=== PATIENT | female | born 1950 | race Caucasian/White ===

== ENCOUNTER → 2018-01-24 | Outpatient (CLI) | payer MEDICARE, OTHER ==
[~2018-01-24] MED LIST: ALBU3IS INH; ALBU90OI6 INH; AMOCLA875 PO; ASPI81CH PO; ASPI81EC PO; AZIT500 PO; CITA20 PO; Cardizem CD 24240 MG PO; Clobetasol Prop50 ML TP; FISH1000 PO; FLONASE ALLERG9.9 ML INH; FLUSAL2505 INH; HYDR.5TC TOP; LAVAP17G PO; Levaquin500 MG PO; METO50 PO; Multivitamin1 EAC1 PO; NAPR500EC PO; PRED10 PO; PREDNISONE TAPER; Prednisone20 MG PO; Prinivil10 MG PO; SIMV10 PO; TIOT18 INH; TRIA80TC TOP; TRIHYD253B PO; Voltaren100 GM TP; Zithromax250 MG PO
[2018-01-24 11:57] LABS: BASOPHILS ABSOLUTE AUTO 0.01 K/mm3 (0.00-0.23); BASOPHILS PERCENT AUTO 0 % (0-2); EOSINOPHILS ABSOLUTE AUTO 0.12 K/mm3 (0.00-0.68); EOSINOPHILS PERCENT AUTO 3 % (0-6); Hematocrit 38.6 % (33.0-51.0); Hemoglobin 12.3 g/dL (11.5-16.0); IMMATURE GRAN PERCENT AUTO 0 % (0-1); LYMPHOCYTES ABSOLUTE AUTO 1.25 K/mm3 (0.84-5.20); LYMPHOCYTES PERCENT AUTO 26 % (21-46); MONOCYTES ABSOLUTE AUTO 0.43 K/mm3 (0.16-1.47); MONOCYTES PERCENT AUTO 9 % (4-13); Mean Corpuscular HGB 29.9 pg (26.0-34.0); Mean Corpuscular HGB Conc 31.9 g/dL (31.5-36.5); Mean Corpuscular Volume 94 fL (80-100); Mean Platelet Volume 12.1 fL (9.1-12.4); NEUTROPHILS ABSOLUTE AUTO 3.01 K/mm3 (1.96-9.15); NEUTROPHILS PERCENT AUTO 63 % (41-73); Platelet Count 121 K/mm3 (150-400); RDW Coefficient Variation 13.7 % (11.7-14.2); RDW Standard Deviation 46.5 fL (35.1-46.3); Red Blood Cell Count 4.11 M/mm3 (3.80-5.20); White Blood Cell Count 4.82 K/mm3 (4.00-11.30)
[2018-01-24 12:16] LABS: Alanine Aminotransfer (ALT/SGP 14 U/L (12-78); Albumin, Blood 3.6 g/dL (3.4-5.0); Alk Phos 77 U/L (40-126); Anion Gap 3 mmol/L (6-16); Aspartate Aminotrans (AST/SGOT 18 U/L (12-37); Bilirubin, Total 0.5 mg/dL (0.1-1.0); Blood Urea Nitrogen 18 mg/dL (8-24); Bun/Creatinine Ratio 20.7 (12.0-20.0); CO2, Blood 37 mmol/L (21-32); CPK Creatine Kinase 41 U/L (26-192); Chloride, Blood 100 mmol/L (98-108); Creatinine, Blood 0.87 mg/dL (0.40-1.00); Globulin, Blood 3.5 g/dL (2.2-4.0); Glomerular Filtration Rate >60 (60-); Glucose, Blood 106 mg/dL (70-99); Potassium, Blood 4.6 mmol/L (3.5-5.5); Sodium, Blood 140 mmol/L (136-145); Thyroid Stimulating Hormone 1.638 uIU/mL (0.360-4.800); Total Protein, Blood 7.1 g/dL (6.4-8.2)
[2018-01-24 12:17] LABS: Troponin I <0.017 ng/mL (0.000-0.040)
== END ==
LOC: LAB SHORT 11:51 → LAB EV 11:51
PROVIDERS: General Practice
DX: R06.00 Dyspnea, unspecified (principal)
CPT/HCPCS: 80053; 82550; 83880; 84443; 84484; 85025

== ENCOUNTER 2019-03-03 15:34 | Inpatient (IN) | payer MEDICARE, OTHER ==
[~2019-03-03] VITALS: Ht 172.7 cm; Wt 116.0 kg
[~2019-03-03 15:34] MED LIST changes: +ALBU2.5V5 INH; +ALBU90OI; +CLOB.05TO; +CLOB.05TO TOP; +DILT120 PO; +FLUT1DIS5; +HYDCOR2.5C TOP; +INCRUSE ELLI62.5 MCG INH; +Ipratropium Bro30 ML; +MELO7.5 PO; +VOLTAREN100 GM; +Zocor20 MG PO
[2019-03-03 16:19] LABS: BASOPHILS ABSOLUTE AUTO 0.01 K/mm3 (0.00-0.23); BASOPHILS PERCENT AUTO 0 % (0-2); EOSINOPHILS PERCENT AUTO 0 % (0-6); Hematocrit 41.9 % (33.0-51.0); Hemoglobin 12.7 g/dL (11.5-16.0); IMMATURE GRAN ABSOLUTE AUTO 0.03 K/mm3 (0.00-0.10); IMMATURE GRAN PERCENT AUTO 0 % (0-1); LYMPHOCYTES ABSOLUTE AUTO 0.81 K/mm3 (0.84-5.20); LYMPHOCYTES PERCENT AUTO 8 % (21-46); MONOCYTES ABSOLUTE AUTO 0.31 K/mm3 (0.16-1.47); MONOCYTES PERCENT AUTO 3 % (4-13); Mean Corpuscular HGB 30.2 pg (26.0-34.0); Mean Corpuscular HGB Conc 30.3 g/dL (31.5-36.5); Mean Corpuscular Volume 100 fL (80-100); Mean Platelet Volume 11.8 fL (9.1-12.4); NEUTROPHILS ABSOLUTE AUTO 9.53 K/mm3 (1.96-9.15); NEUTROPHILS PERCENT AUTO 89 % (41-73); Platelet Count 150 K/mm3 (150-400); RDW Standard Deviation 47.5 fL (35.1-46.3); Red Blood Cell Count 4.21 M/mm3 (3.80-5.20); White Blood Cell Count 10.69 K/mm3 (4.00-11.30)
[2019-03-03 16:20] LABS: PCO2 Arterial 85.8 mmHg (35-45)
[2019-03-03 16:38] LABS: Alanine Aminotransfer (ALT/SGP 21 U/L (12-78); Albumin, Blood 3.5 g/dL (3.4-5.0); Albumin/Globulin Ratio 0.9 (0.8-1.8); Alk Phos 86 U/L (50-136); Anion Gap 3 mmol/L (6-16); Aspartate Aminotrans (AST/SGOT 27 U/L (12-37); Bilirubin, Total 0.3 mg/dL (0.1-1.0); Blood Urea Nitrogen 24 mg/dL (8-24); Bun/Creatinine Ratio 38.9 (12.0-20.0); CO2, Blood 38 mmol/L (21-32); Calcium, Blood 9.1 mg/dL (8.5-10.1); Chloride, Blood 96 mmol/L (98-108); Creatinine, Blood 0.62 mg/dL (0.40-1.00); Glomerular Filtration Rate >60 (60-); Glucose, Blood 175 mg/dL (70-99); Magnesium, Blood 2.1 mg/dL (1.6-2.4); Potassium, Blood 4.8 mmol/L (3.5-5.5); Sodium, Blood 137 mmol/L (136-145); Total Protein, Blood 7.5 g/dL (6.4-8.2)
[2019-03-03] MEDS ORDERED: AZIT250 PO (19:32)
[2019-03-03] MEDS ORDERED: Clobetasol Emol15 GM TOP (19:34)
[2019-03-03] MEDS ORDERED: FLUT1DIS8 INH (19:36)
[2019-03-03] MEDS ORDERED: FISH OIL 1,0001 EAC2 PO (19:44)
[2019-03-03] MEDS ORDERED: THERA1 EACH PO (19:44)
[2019-03-03] MEDS ORDERED: LO-DOSE ASPIRIN81 MG PO (19:44)
[2019-03-03] MEDS ORDERED: Calcium-Mag-Zi1 EACH PO (19:45)
[2019-03-04 03:25] LABS: BASOPHILS PERCENT AUTO 0 % (0-2); EOSINOPHILS PERCENT AUTO 0 % (0-6); Hematocrit 39.7 % (33.0-51.0); Hemoglobin 12.4 g/dL (11.5-16.0); IMMATURE GRAN ABSOLUTE AUTO 0.03 K/mm3 (0.00-0.10); IMMATURE GRAN PERCENT AUTO 1 % (0-1); LYMPHOCYTES ABSOLUTE AUTO 0.54 K/mm3 (0.84-5.20); LYMPHOCYTES PERCENT AUTO 9 % (21-46); MONOCYTES ABSOLUTE AUTO 0.08 K/mm3 (0.16-1.47); MONOCYTES PERCENT AUTO 1 % (4-13); Mean Corpuscular HGB 30.8 pg (26.0-34.0); Mean Corpuscular HGB Conc 31.2 g/dL (31.5-36.5); Mean Corpuscular Volume 99 fL (80-100); Mean Platelet Volume 11.8 fL (9.1-12.4); NEUTROPHILS ABSOLUTE AUTO 5.74 K/mm3 (1.96-9.15); NEUTROPHILS PERCENT AUTO 90 % (41-73); Platelet Count 131 K/mm3 (150-400); RDW Standard Deviation 47.1 fL (35.1-46.3); Red Blood Cell Count 4.03 M/mm3 (3.80-5.20); White Blood Cell Count 6.39 K/mm3 (4.00-11.30)
[2019-03-04 03:41] LABS: Anion Gap 2 mmol/L (6-16); Blood Urea Nitrogen 19 mg/dL (8-24); Bun/Creatinine Ratio 38.2 (12.0-20.0); CO2, Blood 40 mmol/L (21-32); Calcium, Blood 8.8 mg/dL (8.5-10.1); Chloride, Blood 97 mmol/L (98-108); Glomerular Filtration Rate >60 (60-); Glucose, Blood 191 mg/dL (70-99); Potassium, Blood 4.7 mmol/L (3.5-5.5); Sodium, Blood 139 mmol/L (136-145)
[2019-03-04 04:43] LABS: PCO2 Arterial 81.7 mmHg (35-45); PO2 Arterial 93.7 mmHg (80-100); pH Blood Arterial 7.34 (7.35-7.45)
--- NOTE | 2019-03-04 05:55 | NUR ---
SHIFT SUMMARY PT SLEEPING IN ROOM COMFORTABLY AT THIS TIME. PT ARRIVED TO UNIT FROM ED AND WAS MVED FROM STRETCHER TO HOSP BED. PT VERY DYSPNIC UPON ARRIVAL, W/ INCREASING SOB W/ MOVEMENT. RESP TACHY AND LABORED W/ SATS BETWEEN 88-91% ON 5L NC. PT MOVED TO HIFLO NC UPON AND INCREASED TO 7L HIFLOW NC W/ HUMIDITY. SATS NOW INCREASED TO 94%. PT HAS BEEN REFUSING BIPAP, BUT AGREED TO TRY AIRVO. PT MOVED TO AIRVO ON 60L 40% FiO2, PT NOW FEELING MUCH BETTER, REPORTS DYSPNEA IMPROVED AND SATS >95%. PT WAS ABLE TO SLEEP COMFORTABLY, DENIED PAIN OR OTHER NEEDS. CALL LIGHT IN REACH.
--- NOTE | 2019-03-04 07:08 | NUR ---
AM NOTE ASSUMED CARE OF PT APROX 0700, PT IS CURRENTLY ON AIRVO AT 60L AND 40% FIO2. PT WAS ADMITTED FOR PNA. PT IS NORMALLY ON 3L NC AT HOME. MONITOR INTACT, NSR IN THE 80'S-90'S. PT'S BP HAS BEEN HYPERTENSIVE. PT WAS MEDICATED PER EMAR. PT'S L/S COARSE W/ WHEEZES T/O ON THE AIRVO. BT PRESENT AND HYPOACTIVE, ABD IS SOFT AND NONTENDER TO PALP. PT HAS RED PETECHIAE LIKE RASH ALL OVER HER ABD AND CHEST. PT IS VERY ANXIOUS ABOUT BECOMING SOB. CALL LIGHT IN REACH BED IS LOCKED AND LOW WILL CONTINUE TO MONITOR.
[2019-03-04 13:19] LABS: Source, Urine Catheter
[2019-03-04 13:26] LABS: Bilirubin, Urine Neg (Neg); Blood, Urine 1+ (Neg); Glucose Qualitative, Urine Neg (Neg); Ketones, Urine Neg (Neg); Leukocyte Esterase, Urine Neg (Neg); Nitrite, Urine Neg (Neg); Protein, Urine 2+ (Neg); Specific Gravity, Urine 1.015 (1.003-1.022); Urobilinogen, Urine NORM (Normal); pH, Urine 6.5 (5.0-8.0)
[2019-03-04 14:39] LABS: Appearance, Urine Clear (Clear); Color, Urine Yellow (P-Yellow)
[2019-03-04 14:40] LABS: Red Blood Cells, Urine 0-2 /hpf (0-2); White Blood Cells, Urine 0-2 /hpf (0-5)
[2019-03-04 14:41] LABS: Bacteria Rare /hpf; Squamous Epithelial Cells Rare /hpf (Few)
--- NOTE | 2019-03-04 19:45 | NUR ---
SHIFT SUMMARY. NO ACUTE CHANGES NOTED THIS SHIFT. PT'S BP HAS IMPROVED SINCE THIS AM. PT HAS BEEN RESTING VERY WELL SINCE THE ARMENDARIZ WAS PLACED, PT STATED SHE FELT MORE COMFORTABLE AND LESS ANXIOUS ABOUT HAVING TO USE THE BED TORRES AND BECOME SOB. CALL LIGHT IN REACH, BED IS LOCKED AND LOW WILL CONTINUE TO MONITOR UNTIL REPORT IS GIVEN TO ONCOMING RN.
--- NOTE | 2019-03-05 00:05 | NUR ---
ASSUMED CARE OF PATIENT AT [facility] FROM PAMELA Yanez RN. PATIENT ALERT AND ORIENTED X4; ANXIOUS AT TIMES; ANXIOUS WHEN SHE THINKS AIRVO MASK SLIDES OUT OF PLACE; DYSPNEA WITH ACTIVITY. PATIENT DENIES PAIN, NUMBNESS, TINGLING, DIZZINESS AND NAUSEA. PATIENT TURNED FREQUENTLY; REFUSED LAST TURN; REPORTED "I'M VERY COMFORTABLE". PATIENT NSR ON HEART MONITOR; OXYGEN SATURATION ABOVE 90% ON 60L 40% FIO2 AIRVO. REPORTED PATIENT CANNOT TOLERATE BIPAP DUE TO CLAUSTROBIA. PIV S/L. URINARY CATHETER PATENT AND DRAINING. PATIENT CURRENTLY RESTING IN BED; CALL LIGHT IN REACH; BED IN LOWEST POSISITON; WILL CONTINUE TO MONITOR AND ASSESS UNTIL END OF SHIFT.
--- NOTE | 2019-03-05 06:19 | NUR ---
PATIENT SLEPT ABOUT NINE HOURS LAST NIGHT. REPORTS FEELING WELL RESTED THIS MORNING. NO ACUTE CHANGES TO REPORT. WILL CONTINUE TO MONITOR AND ASSESS UNTIL END OF SHIFT.
--- NOTE | 2019-03-05 12:35 | NUR ---
REASSESSMENT: PT HAS BEEN RESTING IN BED WITH THE AIRVO ON THROUGHOUT THE MORNING. SHE IS SLIGHTLY ANXIOUS, ESPECIALLY IF HER NASAL CANNULA IS TOUCHED. LOTS OF REASSURANCE PROVIDED ABOUT HER OXYGEN LEVELS AND BREATHING. SHE IS ALERT AND ORIENTED, LUNGS ARE VERY WHEEZY. MOIST, PRODUCTIVE SOUNDING COUGH BUT PT ISN'T SPITTING ANYTHING OUT. SR, BP ELEVATED. DR. PHELPS AWARE AND ADJUSTED MEDICATIONS. PT RECEIVED A BED BATH AND DID WELL, EXCEPT SHE NEEDED A COUPLE MINUTES FOR HER BREATHING TO RECOVER AFTER EACH TURN. PT'S SPENT THE MORNING AT THE BEDSIDE AND WAS UPDATED BY DR. PHELPS. ALL QUESTIONS HAVE BEEN ANSWERED.
--- NOTE | 2019-03-05 16:56 | NUR ---
SHIFT SUMMARY: PT HAD NO ACUTE CHANGES THIS SHIFT. HER LUNGS CONTINUE TO BE VERY WHEEZY. SHE STILL REQUIRES THE AIRVO TO MEET HER OXYGEN DEMANDS AND GETS DYSPNEIC WITH MINIMAL ACTIVITY. SR, BP ELEVATED, DR. PHELPS AWARE AND ADJUSTING MEDICATIONS. SHE HAS A POOR APPETITE BUT IS DRINKING ENSURES. SHE WENT AND HAD HER CHEST CT COMPLETED WHICH WAS NEGATIVE FOR PE. CONTINUING TO MONITOR.
--- NOTE | 2019-03-06 03:04 | NUR ---
[place] of Care: Report received from Bailey RIZO. Patient sleeping, appears comfortable. Will continue to monitor.
[2019-03-06 03:32] LABS: BASOPHILS ABSOLUTE AUTO 0.01 K/mm3 (0.00-0.23); BASOPHILS PERCENT AUTO 0 % (0-2); EOSINOPHILS PERCENT AUTO 0 % (0-6); Hematocrit 41.3 % (33.0-51.0); Hemoglobin 12.2 g/dL (11.5-16.0); IMMATURE GRAN ABSOLUTE AUTO 0.05 K/mm3 (0.00-0.10); IMMATURE GRAN PERCENT AUTO 1 % (0-1); LYMPHOCYTES ABSOLUTE AUTO 0.45 K/mm3 (0.84-5.20); LYMPHOCYTES PERCENT AUTO 7 % (21-46); MONOCYTES ABSOLUTE AUTO 0.28 K/mm3 (0.16-1.47); MONOCYTES PERCENT AUTO 5 % (4-13); Mean Corpuscular HGB 30.1 pg (26.0-34.0); Mean Corpuscular HGB Conc 29.5 g/dL (31.5-36.5); Mean Platelet Volume 11.6 fL (9.1-12.4); NEUTROPHILS ABSOLUTE AUTO 5.34 K/mm3 (1.96-9.15); NEUTROPHILS PERCENT AUTO 87 % (41-73); Platelet Count 132 K/mm3 (150-400); RDW Coefficient Variation 12.6 % (11.7-14.2); RDW Standard Deviation 47.1 fL (35.1-46.3); Red Blood Cell Count 4.05 M/mm3 (3.80-5.20); White Blood Cell Count 6.13 K/mm3 (4.00-11.30)
[2019-03-06 03:35] LABS: Mean Corpuscular Volume 102 fL (80-100)
[2019-03-06 03:47] LABS: Alanine Aminotransfer (ALT/SGP 16 U/L (12-78); Albumin/Globulin Ratio 0.9 (0.8-1.8); Alk Phos 63 U/L (50-136); Aspartate Aminotrans (AST/SGOT 10 U/L (12-37); Bilirubin, Total 0.2 mg/dL (0.1-1.0); Blood Urea Nitrogen 32 mg/dL (8-24); Bun/Creatinine Ratio 61.2 (12.0-20.0); Calcium, Blood 9.1 mg/dL (8.5-10.1); Chloride, Blood 97 mmol/L (98-108); Creatinine, Blood 0.52 mg/dL (0.40-1.00); Globulin, Blood 3.5 g/dL (2.2-4.0); Glomerular Filtration Rate >60 (60-); Glucose, Blood 189 mg/dL (70-99); Potassium, Blood 4.9 mmol/L (3.5-5.5); Sodium, Blood 142 mmol/L (136-145); Total Protein, Blood 6.5 g/dL (6.4-8.2)
[2019-03-06 03:52] LABS: Anion Gap Unable to Calculate mmol/L (6-16); CO2, Blood >45 mmol/L (21-32)
[2019-03-06 04:31] LABS: PCO2 Arterial 99.3 mmHg (35-45); PO2 Arterial 80.6 mmHg (80-100); pH Blood Arterial 7.31 (7.35-7.45)
--- NOTE | 2019-03-06 06:25 | NUR ---
Shift Summary: Patient slept well throughout shift. Denies pain, discomfort, SOB, or dyspnea. ON Air-vo NC at 60L/45% FiO2 throughout most of shift, tolerated well, O2-92-96%, and no s/s of respiratory distress. Morning BMP results showed CO2 > 45, contacted Dr. Li and received order for ABG, which showed CO2-99.3. Again contacted Dr. Li and received instructions to place patient on BiPAP as tolerated. Patient nervous about use of BiPAP mask, but has been tolerating without difficulty. Nova cath remains patent and intact, draining clear yellow urine. Will continue to monitor until report to day shift RN.
--- NOTE | 2019-03-06 12:12 | NUR ---
REASSESSMENT: PT HAS BEEN RESTING IN BED THROUGHOUT THE MORNING. SHE IS ALERT AND ORIENTED. LUNGS ARE STILL VERY WHEEZY, L WORSE THAN R. SHE HAS BEEN ON THE BIPAP AND USING THE AIRVO FOR BREAKS. SHE HAS BEEN TOLERATING THE BIPAP WELL. DR. GIRON WAS CONSULTED BY DR. PHELPS AND PT WAS MADE ICU STATUS. BP REMAINS HIGH, DR. PHELPS ADJUSTED MEDICATIONS AGAIN. NO OTHER CONCERNS FROM PT AT THIS TIME. CONTINUING TO MONITOR.
[2019-03-06 16:10] LABS: PO2 Arterial 79.5 mmHg (80-100); pH Blood Arterial 7.35 (7.35-7.45)
[2019-03-06 16:11] LABS: PCO2 Arterial 90 mmHg (35-45)
--- NOTE | 2019-03-06 16:16 | NUR ---
DR. GIRON NOTIFIED OF ABG RESULTS. RECEIVED ORDER TO INCREASE IPAP TO 18. RT NOTIFIED.
--- NOTE | 2019-03-06 17:10 | NUR ---
SHIFT SUMMARY: PT WORE THE BIPAP ALL AFTERNOON EXCEPT FOR A 5 MINUTE BREAK TO MEDICATION. SHE HAS REMAINS ALERT AND ORIENTED. LUNGS ARE STILL WHEEZY. PT GETS DYSPNEIC WITH MINIMAL ACTIVITY ALTHOUGH SHE IS TOLERATING IT BETTER ON THE BIPAP. HER BP IS IMPROVED WITH SBP IN THE 140S NOW, SR. SHE DOESN'T HAVE A LARGE APPETITE BUT IS TRYING TO DRINK THE ENSURES THAT COME ON THE TRAYS. SHE HAS CLEAR YELLOW URINE. WAS AT THE BEDSIDE THIS MORNING AND WAS UPDATED. CONTINUING TO MONITOR.
--- NOTE | 2019-03-06 19:00 | NUR ---
[place] of Care: Patient sleeping, easily roused via verbal stimuli, oriented x4. Denies pain, discomfort, SOB, or dyspnea. VSS, O2-93-95% on BiPAP 18/8/30%. Plan to promote use of BiPAP mask throughout shift, will give patient short breaks as tolerated. Peripheral IV to RFA patent and intact. Nova cath patent and intact, draining clear yellow urine. Call light in reach, makes needs known. Will continue to monitor for pain, comfort, safety.
[2019-03-07 03:35] LABS: BASOPHILS ABSOLUTE AUTO 0.01 K/mm3 (0.00-0.23); BASOPHILS PERCENT AUTO 0 % (0-2); EOSINOPHILS PERCENT AUTO 0 % (0-6); Hematocrit 39.3 % (33.0-51.0); IMMATURE GRAN ABSOLUTE AUTO 0.07 K/mm3 (0.00-0.10); IMMATURE GRAN PERCENT AUTO 1 % (0-1); LYMPHOCYTES PERCENT AUTO 9 % (21-46); MONOCYTES PERCENT AUTO 4 % (4-13); Mean Corpuscular HGB 30.5 pg (26.0-34.0); Mean Corpuscular HGB Conc 30.5 g/dL (31.5-36.5); Mean Corpuscular Volume 100 fL (80-100); Mean Platelet Volume 11.4 fL (9.1-12.4); NEUTROPHILS ABSOLUTE AUTO 4.87 K/mm3 (1.96-9.15); NEUTROPHILS PERCENT AUTO 86 % (41-73); Platelet Count 123 K/mm3 (150-400); RDW Coefficient Variation 12.4 % (11.7-14.2); RDW Standard Deviation 46.2 fL (35.1-46.3); Red Blood Cell Count 3.93 M/mm3 (3.80-5.20); White Blood Cell Count 5.65 K/mm3 (4.00-11.30)
[2019-03-07 03:48] LABS: Albumin, Blood 2.9 g/dL (3.4-5.0); Blood Urea Nitrogen 37 mg/dL (8-24); Bun/Creatinine Ratio 70.5 (12.0-20.0); Calcium, Blood 8.8 mg/dL (8.5-10.1); Chloride, Blood 96 mmol/L (98-108); Creatinine, Blood 0.53 mg/dL (0.40-1.00); Glomerular Filtration Rate >60 (60-); Glucose, Blood 210 mg/dL (70-99); Magnesium, Blood 2.3 mg/dL (1.6-2.4); Phosphorus, Blood 2.5 mg/dL (2.5-4.9); Potassium, Blood 4.6 mmol/L (3.5-5.5); Sodium, Blood 141 mmol/L (136-145)
[2019-03-07 03:50] LABS: Anion Gap Unable to Calculate mmol/L (6-16); CO2, Blood >45 mmol/L (21-32)
[2019-03-07 05:19] LABS: PCO2 Arterial 74 mmHg (35-45); PO2 Arterial 68.8 mmHg (80-100); pH Blood Arterial 7.44 (7.35-7.45)
--- NOTE | 2019-03-07 05:57 | NUR ---
Shift Summary: Patient slept well throughout shift, easily roused via verbal stimuli. Denies pain, discomfort, SOB, or dyspnea. VSS, on BiPAP throughout majority of shift 18/8/30-35%, O2-87-96%. Tolerated short breaks from BiPAP via high-flow NC without difficulty. Nova cath patent and intact, draining clear yellow urine. Peripheral IV x1 remains patent and intact. Will continue to monitor until report to day shift RN.
--- NOTE | 2019-03-07 10:52 | NUR ---
pt is a/o but very weak and SLOW TO RECOVER OFF BIPAP. PT IS SOMEWHAT PAINFUL WITH MOVEMENT AND IS POORLY MOTIVATED TO ASSIST. PT IS TOLERATING BIPAP WELL AND IS TAKING PO W/O DISTRESS. DR DOBBS IN AND SETTINGS DOWN TO 14/6 AT 35%. WILL FOLLOW.
--- NOTE | 2019-03-07 14:42 | NUR ---
PT IS RESTNG WELL ON JUST 9L AND WILL DEC TO 8L HFNC AND MONITOR.
--- NOTE | 2019-03-07 16:28 | NUR ---
1530 PT RETURNED TO BIPAP 25/02 35% AND WAS QUITE ANXIEOUS FOR A PERIOD OF TIME AND REQUESTED PO PAIN MEDS FOR MIDSTERNAL BRONCHIAL CHEST PAIN.
--- NOTE | 2019-03-07 18:02 | NUR ---
PT REMAINS ON BIPAP AT 14/6 AND 35% WITH SATS 93-5 %. PT IS QUITE ANXIOUS AND CALLING OUT BUT HAS GOOD TV AND SATS. PT I/O NOTED AND DENIES PAIN AT THIS TIME.
[2019-03-07 19:26] LABS: Adenovirus Not Detected (NOT DETECT); Bordetella pertussis Not Detected (NOT DETECT); Chlamydophila pneumoniae Not Detected (NOT DETECT); Coronavirus 229E Not Detected (NOT DETECT); Coronavirus HKU1 Not Detected (NOT DETECT); Coronavirus NL63 Not Detected (NOT DETECT); Coronavirus OC43 Not Detected (NOT DETECT); Human Metapneumovirus Detected (NOT DETECT); Human Rhinovirus/Enterovirus Not Detected (NOT DETECT); Influenza A Not Detected (NOT DETECT); Influenza A/2009-H1 Not Detected (NOT DETECT); Influenza A/H1 Not Detected (NOT DETECT); Influenza A/H3 Not Detected (NOT DETECT); Influenza B Not Detected (NOT DETECT); Mycoplasma pneumoniae Not Detected (NOT DETECT); Parainfluenza Virus 1 Not Detected (NOT DETECT); Parainfluenza Virus 2 Not Detected (NOT DETECT); Parainfluenza Virus 3 Not Detected (NOT DETECT); Parainfluenza Virus 4 Not Detected (NOT DETECT); Respiratory Syncytial Virus Not Detected (NOT DETECT)
--- NOTE | 2019-03-07 19:30 | NUR ---
ASSUMED CARE BEDSIDE REPORT RECIEVED. PT IS RESTING IN BED WITH BIPAP IN PLACE. BIPAP 14/6, FIO2 35%. PT IS AWAKE, ALERT AND ORIENTED. PT IS ANXIOUS ABOUT HER BREATHING. PT DENIES SOB OR DYSPNEA WHEN THE BIPAP IS ON, BUT IS ASKING ABOUT HER VITALS FREQUENTLY. VITAL SIGNS ARE STABLE. PT WITH IV SALINE LOCKED. ARMENDARIZ IN PLACE WITH YELLOW OUTPUT NOTED. PT REQUESTING TO KEEP THE CURTAIN IN ROOM OPEN SO SHE CAN SEE OUT TO THE NURSES STATION. WILL CONTINUE TO MONITOR.
--- NOTE | 2019-03-07 23:05 | NUR ---
ACUTE CONFUSION/AGITATION AFTER BEING IN PT ROOM MULTIPLE TIMES TO ADDRESS PT NEEDS AND TAKE PT BIPAP ON AND OFF MULTIPLE TIMES PER PT REQUEST, PT HAS BECOME ACUTELY ANXIOUS AND AGITATED. PT IS YELLING OUT FROM ROOM STATING "THEY ARE TRYING TO KILL ME! WHY ARE YOU TRYING TO KILL ME." IN REFERENCE TO THE OTHER NURSES AND DEAN OF [place] THAT ARE ASSISTING WITH PT CARE IN THE UNIT. PT REASSURED AND REORIENTED. PT CONTINUES TO BELIEVE THAT EVERYONE IS TRYING TO KILL HER. OVERNIGHT STOCKER AMIRAH TALBERT NOTIFED. ORDERS RECIEVED FOR 25 MG TRAZODONE ONE TIME. PT AGREED TO TAKE PILL DESPITE SAYING THAT THE OTHER NURSES ARE TRYING TO KILL HER. WILL CONTINUE TO MONITOR.
--- NOTE | 2019-03-07 23:27 | NUR ---
ASSUMING CARE OF PT AT THIS TIME. PT REPORT RECEIVED AT BEDSIDE WITH OFFGOING NURSE, AMIRAH RIZO. PT LAYING IN BED, AWAKE. VS STABLE - SEE VS FS. PT DOES NOT APPEAR TO BE IN DISTRESS AT THIS TIME. WILL REVIEW PLAN OF CARE.
--- NOTE | 2019-03-07 23:30 | NUR ---
ASSESSMENT PT UNCOOPERATIVE, YELLING, ANXIOUS, AGITATED, CONFUSED, A&O TO SELF/PLACE, REFUSING TO ANSWER MOST QUESTIONS, FOLLOWS COMMANDS, FORGETFUL. PT C/O CHRONIC N/T TO ALL EXTREMETIES. PT JACK. WEAK MOVEMENT NOTED. PT ASSISTS WITH TURNS. QP SBA TO AMBULATE PT. PT DENIES PAIN/DISCOMFORT. NO S/SX OF PAIN/DISCOMFORT NOTED. COARSE UPPER AND MIDDLE LOBES, EXPIRATORY WHEEZING UPPER AND MIDDLE LOBES, DIMINISHED LOWER LOBES. SHALLOW BREATHING. PT ON 10L HIGH FLOW NC W/ HUMIDIFED AIR. OXY SAT >95%. RR 20'S. BIPAP WHILE SLEEPING 14/6, FIO2 35%. OCC NONPRODUCTIVE COUGH. AFEBRILE. ST WITH OCC PAC'S AND PVC'S. HR 100'S. SLIGHTLY HTN W/ AGITATION. STRONG RADIAL PULSES. FAINT TIBIAL AND PEDAL PULSES. EDEMA BLE'S. WARM, PINK SKIN. HYPOACTIVE BT X4 QUADRANTS. ABD MOD DIST (PT STATES ABD DIST IS NORMAL), SOFT, NONTENDER. NO N/V. NO BM. PT TOLERATING ADA DIET AND PO WATER. F/C IN PLACE: YELLOW CLOUDY URINE WITH SEDIMENT. PIV X1 - SL.
[2019-03-08 03:42] LABS: Base Excess Venous 23.3 mmol/L; Bicarbonate Venous 43.4 mmol/L (24.0-30.0); PCO2 Venous 69.8 mmHg (38-42); PO2 Venous 52 mmHg (38-42); pH Blood Venous 7.44 (7.34-7.37)
[2019-03-08 03:49] LABS: BASOPHILS ABSOLUTE AUTO 0.01 K/mm3 (0.00-0.23); BASOPHILS PERCENT AUTO 0 % (0-2); EOSINOPHILS PERCENT AUTO 0 % (0-6); Hematocrit 42.1 % (33.0-51.0); IMMATURE GRAN PERCENT AUTO 4 % (0-1); LYMPHOCYTES ABSOLUTE AUTO 0.54 K/mm3 (0.84-5.20); LYMPHOCYTES PERCENT AUTO 11 % (21-46); MONOCYTES ABSOLUTE AUTO 0.24 K/mm3 (0.16-1.47); MONOCYTES PERCENT AUTO 5 % (4-13); Mean Corpuscular HGB 30.1 pg (26.0-34.0); Mean Corpuscular HGB Conc 30.9 g/dL (31.5-36.5); Mean Corpuscular Volume 98 fL (80-100); Mean Platelet Volume 11.3 fL (9.1-12.4); NEUTROPHILS ABSOLUTE AUTO 3.81 K/mm3 (1.96-9.15); NEUTROPHILS PERCENT AUTO 79 % (41-73); Platelet Count 127 K/mm3 (150-400); RDW Coefficient Variation 12.5 % (11.7-14.2); RDW Standard Deviation 45.2 fL (35.1-46.3); Red Blood Cell Count 4.32 M/mm3 (3.80-5.20)
[2019-03-08 04:02] LABS: Blood Urea Nitrogen 39 mg/dL (8-24); Bun/Creatinine Ratio 69.9 (12.0-20.0); Calcium, Blood 8.9 mg/dL (8.5-10.1); Chloride, Blood 97 mmol/L (98-108); Creatinine, Blood 0.56 mg/dL (0.40-1.00); Glomerular Filtration Rate >60 (60-); Glucose, Blood 203 mg/dL (70-99); Magnesium, Blood 2.3 mg/dL (1.6-2.4); Potassium, Blood 4.2 mmol/L (3.5-5.5); Sodium, Blood 143 mmol/L (136-145)
[2019-03-08 04:06] LABS: Anion Gap Unable to Calculate mmol/L (6-16); CO2, Blood >45 mmol/L (21-32)
--- NOTE | 2019-03-08 04:30 | NUR ---
DR. SWANSON PT HYPERTENSIVE (SEE VS FS). CALLED DR. SWANSON AT 0417. DR. SWANSON CALLED ICU BACK AT 0424. INFORMED DR. SWANSON OF VS (SEE VS FS) AND CRITICAL LAB VALUE CO2 >45. DR. SWANSON ORDERED HYDRALAZINE 10 MG IV Q6P FOR SBP >160. WAITING FOR VERIFICATION OF MEDICATION FROM PHARMACY AT THIS TIME.
--- NOTE | 2019-03-08 04:32 | NUR ---
SHIFT ASSESSMENT NO ACUTE CHANGES NOTED T/O SHIFT. PT UNCOOPERATIVE AT TIMES, YELLING, ANXIOUS, AGITATED, CONFUSED, A&O TO SELF/PLACE, REFUSING TO ANSWER MOST QUESTIONS, OCC REFUSING PT CARE, FOLLOWS COMMANDS, FORGETFUL, RESTLESS. PT SLEPT APPROXIMATELY 3 HOURS AFTER OFFGOING NURSE (AMIRAH RN) ADMINSITERED TRAZODONE AND HALDOL. PT MORE COOPERATIVE AFTER TRAZODONE AND HALDOL. PT C/O CHRONIC N/T TO ALL EXTREMETIES. PT [place]. WEAK MOVEMENT NOTED. PT ASSISTS WITH TURNS. PER REPORT - 1P SBA TO AMBUALATE. PT DENIES PAIN/DISCOMFORT. NO S/SX OF PAIN/DISCOMFORT NOTED. COARSE UPPER AND MIDDLE LOBES, EXPIRATORY WHEEZING UPPER AND MIDDLEL LOBES, DIMINISHED LOWER LOBES. SHALLOW BREATHING. PT ON 10L HIGH FLOW NC WITH HUMIDIFIED AIR WHILE OFF OF BIPAP. OXY SAT REMAINED >90% WHILE ON 10L HIGH FLOW NC WITH HUMIDFIED AIR. BIPAP 14/6, FIO2 35%. OXY SAT REMAINED >90% WHILE ON BIPAP 14/6, FIO2 35%. RR 14 TO 20'S. OCC NONPRODUCTIVE COUGH. AFEBRILE. NSR TO ST WITH OCC PAC'S AND PVC'S. HR 80'S TO 110'S. INCREASING BP NOTED THIS AM - WAITING FOR VERIFICATON OF HYDRALAZINE PRN AT THIS TIME. OTHERWISE BP STABLE (SEE VS FS). STRONG RADIAL PULSES. FAINT TIBIAL AND PEDAL PULSES. EDEMA BLE'S. WARM, PINK SKIN. HYPOACTIVE BT X4 QUADRANTS. ABD MOD (PT STATES ABD DIST IS NORMAL), SOFT, NONTENDER. NO N/V. NO BM. PT TOLERATING ADA DIET AND PO WATER. F/C IN [place]: YELLOW CLOUDY URINE WITH SEDIMENT. PIV X1 - SL. NS TKO ON STANDBY. WILL CONT TO MONITOR PT AND WILL PROVIDE BEDSIDE REPORT TO ONCOMING NURSE THIS AM.
--- NOTE | 2019-03-08 06:12 | NUR ---
DR. SWANSON PT HYPERTENSIVE (SEE VS FS). CALLED DR. SWANSON AT 0[address]. DR. SWANSON CALLED ICU BACK AT 0610. INFORMED DR. SWANSON OF VS (SEE VS FS). DR. SWANSON AWARE OF PT'S CURRENT ANTIHYPERTENSIVES ORDERED ON EMAR. DR. SWANSON ORDERED LABETALOL 10 MG Q6 HR PRN. WAITING FOR VERIFICATION OF MEDICATION FROM PHARMACY AT THIS TIME.
--- NOTE | 2019-03-08 08:23 | NUR ---
PT WAS RETURNED TO BIPAP AT APPROX 0715 AND IS RESTING WELL BUT IS WHZ T/O BUT IMPROVING ON 25/02 30%. PT ANXIETY IS SUBSIDED CURRENTLY. PT IS NOTING SOME SL ABD TENDERNESS AND WILL ACCEPT BOWEL RX THIS AM. VS NOTED WITH ELEVATED BP AND AM MEDS WILL FOLLOW MAYA.
--- NOTE | 2019-03-08 19:30 | NUR ---
UPDATE BILATERAL GROIN SITES ARE SOFT, NONTENDER AND SHOW NO SIGN OF HEMATOMA FORMATION. PEDAL PULSES ARE STRONG 2+ BILATERALLY.
--- NOTE | 2019-03-08 19:56 | NUR ---
ASSUMED CARE RECIEVED REPORT FROM CLEMENTINE. PT IS ASLEEP CURRENTLY ON 8L HFNC AND SAT'ING MID 90'S; RT WILL BE SWITCHING HER TO BIPAP FOR NIGHT. ARMENDARIZ PATENT HANGING TO GRAVITY, PULSE OX ON RIGHT EARLOBE, AND BP CUFF ON LEFT WRIST. NO FAMILY AT BEDSIDE. BED IS LOW AND LOCKED, CALL LIGHT WITHIN REACH.
--- NOTE | 2019-03-08 22:17 | NUR ---
UPDATE PT REQUESTS TO BE OFF BIPAP, BECAUSE SHE WAS GETTING TOO ZOIE, AND IT WAS UNCOMFORTABLE. SHE IS CURRENTLY ON 8L HFNC WITH HUMIDITY. SAT'ING MID 90'S WITH NO REPORTS OF DYSPNEA. NOTIFIED RT AND IMPLEMENTATION SPECIALIST.
--- NOTE | 2019-03-09 00:10 | NUR ---
UPDATE PT PLACED ON BIPAP BY RT DUE TO CO2 RETENTION. SAT'S HAVE BEEN MID TO HIGH 90'S AND NO COMPLAINTS OF DYSPNEA WHEN OFF BIPAP, OTHERWISE. PT HAS BEEN ASLEEP FOR MAJORITY OF SHIFT. NO OTHER UPDATES AT THIS TIME.
--- NOTE | 2019-03-09 00:15 | NUR ---
UPDATE RT IN ROOM DOING BREATHING TREATMENT. NO MAJOR CHANGES; RT TURNED DOWN LPM TO 4L ON HFNC, FROM 8L; SAT'ING HIGH 90'S. BLOOD PRESSURE IS BACK DOWN IN A BETTER RANGE (SEE VS). PT REQUESTS CURTAIN OPEN AND LIGHTS TO BE ON (DIM) WHILE SHE SLEEPS. BED LOW AND LOCKED. CALL LIGHT WITHIN REACH.
[2019-03-09 05:38] LABS: Base Excess Venous 22.4 mmol/L; Bicarbonate Venous 43.2 mmol/L (24.0-30.0); PCO2 Venous 59.9 mmHg (38-42); PO2 Venous 61.3 mmHg (38-42); pH Blood Venous 7.49 (7.34-7.37)
[2019-03-09 05:42] LABS: BASOPHILS ABSOLUTE AUTO 0.03 K/mm3 (0.00-0.23); BASOPHILS PERCENT AUTO 0 % (0-2); EOSINOPHILS PERCENT AUTO 0 % (0-6); Hemoglobin 13.7 g/dL (11.5-16.0); IMMATURE GRAN ABSOLUTE AUTO 0.33 K/mm3 (0.00-0.10); IMMATURE GRAN PERCENT AUTO 5 % (0-1); LYMPHOCYTES ABSOLUTE AUTO 0.66 K/mm3 (0.84-5.20); LYMPHOCYTES PERCENT AUTO 9 % (21-46); MONOCYTES ABSOLUTE AUTO 0.46 K/mm3 (0.16-1.47); MONOCYTES PERCENT AUTO 7 % (4-13); Mean Corpuscular HGB 29.9 pg (26.0-34.0); Mean Corpuscular HGB Conc 31.1 g/dL (31.5-36.5); Mean Corpuscular Volume 96 fL (80-100); Mean Platelet Volume 11.8 fL (9.1-12.4); NEUTROPHILS ABSOLUTE AUTO 5.61 K/mm3 (1.96-9.15); NEUTROPHILS PERCENT AUTO 79 % (41-73); Platelet Count 152 K/mm3 (150-400); RDW Coefficient Variation 12.9 % (11.7-14.2); RDW Standard Deviation 45.6 fL (35.1-46.3); Red Blood Cell Count 4.58 M/mm3 (3.80-5.20); White Blood Cell Count 7.09 K/mm3 (4.00-11.30)
[2019-03-09 05:59] LABS: Anion Gap 1 mmol/L (6-16); Blood Urea Nitrogen 29 mg/dL (8-24); Bun/Creatinine Ratio 55.9 (12.0-20.0); CO2, Blood 43 mmol/L (21-32); Calcium, Blood 8.8 mg/dL (8.5-10.1); Chloride, Blood 97 mmol/L (98-108); Creatinine, Blood 0.52 mg/dL (0.40-1.00); Glomerular Filtration Rate >60 (60-); Glucose, Blood 196 mg/dL (70-99); Magnesium, Blood 2.5 mg/dL (1.6-2.4); Phosphorus, Blood 3.8 mg/dL (2.5-4.9); Potassium, Blood 4.5 mmol/L (3.5-5.5); Sodium, Blood 141 mmol/L (136-145)
--- NOTE | 2019-03-09 07:15 | NUR ---
START OF SHIFT NOTE: RECEIVED REPORT FROM JESICA GONZALEZ RN, ASSUMED CARE, PATIENT IS AWAKE, ABLE TO FOLLOW ORDERS APPROPRIATELY, PATIENT APPEARS EXTREMELY ANXIOUS, BUT IS COOPERATIVE, STATED THAT SHE "HAD A BOWEL MOVEMENT", PATIENT RECEIVED COMPLETE BEDBATH, BUT WAS FOUND TO NOT HAVE HAD A BM, ABLE TO ROLL FROM SIDE TO SIDE WITH ASSISTANCE, ALERT AND ORIENTED, LUNG SOUNDS ARE DIMINISHED AND CRACKLES HEARD, SR/ST, BLOOD PRESSURES SLIGHTLY ELEVATED IN 170'S, BOWEL TONES PRESENT AND HYPOACTIVE, ARMENDARIZ CATHETER IN PLACE, PATIENT IS ON HIFLO AT THIS TIME, SWITCHES TO BIPAP OCCASSIONALLY, CHEMSTICK DONE AND AT 186, NO COVERAGE REQUIRED, CALL LIGHT IN REACH, WILL CONTINUE TO MONITOR.
--- NOTE | 2019-03-09 07:41 | NUR ---
SHIFT SUMMARY NO ACUTE CHANGES OVERNIGHT. PT REMAINS SLIGHTLY ANXIOUS, BUT COOPERATIVE. ON BIPAP ALL NIGHT 06/18, 40% AND WOKE UP AROUND 0630 AND REQUESTED TO BE BACK ON HFNC. VBG IMPROVING. SLEPT THROUGHOUT NIGHT, ONLY TO WAKE UP TO LAB DRAWS. AFEBRILE. BED LOW AND LOCKED AND CALL LIGHT WITHIN REACH.
--- NOTE | 2019-03-09 07:46 | NUR ---
START OF SHIFT NOTE: RECEIVED REPORT FROM JESICA GONZALEZ RN, ASSUMED CARE, PATIENT IS AWAKE AND RESTLESS, UNABLE TO FOLLOW COMMANDS OR ANSWER QUESTIONS, REPOSITIONED, EKG DONE, PATIENT HAS TEMP OF 102.0, LUNGS ARE TIGHT THROUGHOUT, EXPIRATORY WHEEZING HEARD WITHOUT STETHOSCOPE, BOWEL TONES HYPOACTIVE, ARMENDARIZ CATHETER IN PLACE, DRAINING CLEAR YELLOW URINE, ON MULTIPLE ANTIBIOTICS, LEVOPHED INFUSING AT 3 VIA CENTRAL LINE IN RIGHT NECK, RESTRAINTS IN PLACE, PATIENT PULLING ON LINES AND CORDS AND TRYING TO GET OOB, POSITIONED FOR COMFORT, CALL LIGHT IN REACH, WILL CONTINUE TO MONITOR.
--- NOTE | 2019-03-09 09:17 | NUR ---
IMAGING IN TO DO ORDERED ECHO.
--- NOTE | 2019-03-09 09:59 | NUR ---
PATIENT TOOK AM MEDICATION ONE PILL AT A TIME WITH SOME SIPS OF WATER, NO PROBLEM SWALLOWING, DR. PARDO IN TO SEE PATIENT, STATUS CHANGED TO PCU, PATIENT CONTINUES ON HIFLO WITH O2 SATS AT 93 %, VERBALIZED THAT SHE WILL TRY TO STAY ON HIFLO FOR A WHILE LONGER, CALL LIGHT IN REACH, AT BEDSIDE, WILL CONTINUE TO MONITOR.
--- NOTE | 2019-03-09 11:59 | NUR ---
PATIENT IS RESTING COMFORTABLY AND TRYING TO TAKE A NAP, GOES BETWEEN HIFLO WHEN AWAKE AND BIPAP WHEN SLEEPING, O2 SATS REMAIN 94-95 % ON EITHER OXYGEN DELIVERY MODE, CALL LIGHT IN REACH, WILL CONTINUE TO MONITOR.
--- NOTE | 2019-03-09 16:13 | NUR ---
PATIENT MOSTLY SLEEPING THIS AFTERNOON, SWITCHING BACK AND FORTH BETWEEN HIFLO AND BIPAP, RT IN TO ADMINISTER BREATHING TREATMENTS, NO NEEDS IDENTIFIED, CALL LIGHT IN REACH, WILL CONTINUE TO MONITOR.
--- NOTE | 2019-03-09 17:48 | NUR ---
SHIFT SUMMARY NOTE: PATIENT HAD NO ADVERSE EVENTS DURING THIS SHIFT, SHE USED HIFLO MORE FREQUENTLY AND O2 SATS REMAINED AT 94-95 %, TOLERATED WELL, WAS SWITCHED TO BIPAP HERE AND THERE TO TAKE NAPS, PATIENT FEELS BETTER, VSS, AFEBRILE, DENIES PAIN, ARMENDARIZ CATHETER IN PLACE AND DRAINING DARK YELLOW URINE, PATIENT ATE BREAKFAST WITH GOOD APPETITE, SKIPPED LUNCH, BUT ATE 70 % OF HER DINNER, BLOOD SUGARS SLIGHTLY ELEVATED D/T IV STEROIDS, TAKES ORAL MEDICATION ONE PILL AT A TIME WITHOUT ANY PROBLEMS SWALLOWING, DR. GIRON IN TO SEE PATIENT, STATUS CHANGED TO PCU, PT/OT ORDERED, HAVE NOT SEE PATIENT OF YET, RECLINER IN ROOM, PATIENT TO WALK AND SIT IN CHAIR IF POSSIBLE, FOR DETAILS SEE SHIFT ASSESSMENT DOCUMENTATION AND NURSES NOTES, CALL LIGHT IN REACH, WILL CONTINUE TO MONITOR AND GIVE REPORT TO ONCOMING PHYSICAL SCIENCE TEACHER.
--- NOTE | 2019-03-09 17:59 | NUR ---
[facility] initial note: Mar was alone in room and subdued. she is not mu-ism, but responded well to theraputic listening and emotional affirmation. She admits she is fearful, but she is mostly concerned that her is home alone. He is chronically ill and she has been working hard to care for him. She admits she has ignored her own health to care for him. I complimented her on her capacity for love and offered gentle clinical counselor regarding care for self in order to continue caring for spouse. She verbalizes agreement. It is unclear to me Mar completely grasps the extent and trajection of her illness. Symptom management and compliance appear to be an issue. Possibly financial. aMr took time to warm up to me, and even then she was emotionally distant/guarded. She did not divuldge her spouse's illness. She states she has strong support and help from neighbors and friends. I will remain available.
--- NOTE | 2019-03-09 19:30 | NUR ---
[place] of Care: Patient alert and oriented, sitting upright in bed watching tv. Denies pain, discomfort, SOB, or dyspnea. On BiPAP at shift change 14/8/35%, now on high-flow NC at 4LPM, tolerating without difficulty, O2-94-96%. Will encourage use of BiPAP when sleeping. Peripheral IV ro rt forearm patent and intact. Nova cath patent and intact, draining clear yellow urine. Call light in reach, makes needs known. Will continue to monitor for pain, comfort, safety.
--- NOTE | 2019-03-10 06:06 | NUR ---
Shift Summary: Patient slept well throughout shift, easily roused via verbal stimuli, oriented x4. VSS, O2-92-98% on BiPAP 14//25-30%. Patient also tolerating long breaks from BiPAP, using high-flow NC at 4LPM. Denies dyspnea, SOB, pain, or discomfort. Nova cath remains patent and intact, draining clear yellow urine. Peripheral IV to rt forearm patent and intact. Call light in reach, makes needs known. Will continue to monitor until report to day shift RN.
[2019-03-10 07:52] LABS: PCO2 Arterial 74.6 mmHg (35-45); pH Blood Arterial 7.41 (7.35-7.45)
--- NOTE | 2019-03-10 08:00 | NUR ---
REPORT WAS GIVEN TO SALLIE VILLAFUERTE, PATIENT TO BE TRANSFERRED TO PCU 16, PATIENT IS EATING BREAKFAST AT THIS TIME, WILL BE TRANSFERRED AFTER FINISHED HER BREAKFAST.
--- NOTE | 2019-03-10 08:01 | NUR ---
RECEIVED CRITICAL ABG VALUE FROM MACY SERNA, RT, CALL OUT TO DR. GIRON, AWAITING HIS CALL BACK.
--- NOTE | 2019-03-10 08:31 | NUR ---
PATIENT TRANSFERRED TO PCU 16 VIA BED WITH ALL MEDICATIONS AND BELONGINGS.
--- NOTE | 2019-03-10 08:50 | NUR ---
Received the pt via bed from ICU 7, brought by LEXI Hutchinson. The pt was slid from bed to bed, 3 staff members assisting. The pt states that she feels a little short of breath after all the activity of eating breakfast and taking all her pills this morning. Sitting up in bed, HOB elevated to 50 degrees and she is wearing oxygen at 4 l/min via n.c. delivery. RR 22/min, with spo2 90% upon arrival and supraclavicular retractions noted. She is able to carry on conversation, taking 1-2 breaths during each spoken sentence. States that she has not been out of bed since admission, but normally walks around, occasionally using walker and if long distances, uses a wheelchair. Lives at home with her .
--- NOTE | 2019-03-10 16:55 | NUR ---
Bladder training was started at this time. The pt was able to get up to the chair with standby assistance with the physical therapist.
--- NOTE | 2019-03-10 18:34 | NUR ---
SHIFT SUMMARY PT A&Ox4. CALM AND COOPERATIVE WITH CARE. PT TRANSFERED FROM ICU THIS AM. PT RESTING IN BED DURING SHIFT, UP WITH PHYSICAL THERAPY IN CHAIR. SOB AT REST AT TIME AND WITH EXERTION, >90% ON 4L O2 VIA NC, LS EXP WHE, DIM IN BASES, BIPAP WHILE SLEEPING. RESP EVEN AND UNLABORED. PT DENIES NAUSEA. PT HAS SMALL BM DURING SHIFT, CONTINUES TO ASK FOR PRUNE JUICE. ARMENDARIZ IN PLACE, BLADDER TRAINING STARTED THIS AFTERNOON. PT RECEIVING IV STEROIDS. ELEVATED BP NOTED, MEDIDCATED WITH SCHEDULED BP MEDS. OTHER VSS. NO OTHER ACUTE CHANGES NOTED DURING SHIFT. WILL CONTINUE TO MONITOR UNTIL REPORT GIVEN TO ONCOMING RN.
--- NOTE | 2019-03-11 05:10 | NUR ---
SHIFT SUMMARY: PT IS ALERT AND ORIENTED. PT IS CALM AND COOPERATIVE WITH CARE. PT IS A 1 ASSIST, NOT OUT OF BED OVERNIGHT. BLADDER TRAINING IN PROGRESS. PT DENIES PAIN, NAUSEA, AND VOMITING. PT REPORTS SOB UPON EXERTION, BIPAP OVERNIGHT. PT SLEPT MUCH OF THE NIGHT WHEN NOT DISTURBED. NO ACUTE CHANGES OR COMPLICATIONS THIS SHIFT. BED IN LOW POSITION, CALL LIGHT WITHIN REACH. WILL CONTINUE TO MONITOR.
--- NOTE | 2019-03-11 09:33 | NUR ---
The pt sat up in the chair for breakfast. She did not think that she would be able to ambulate the distance into the bathroom, so she was wheeled into the bathroom and then was able to stand and take a few steps into the shower chair. Nova catheter was removed. After the shower, she stood using the walker, with moderate assistance using Gait belt, staff assited her to the rolling recliner, and then she was brought close to the bed where she again stood and got into bed with minimal assistance. Spo2 just following all the activity was 90% on 4 l/min n.c. O2 delivery. Cheerful disposition, talking with her at the bedside at this time. States that it feels good to be back in bed after the activity and being out of bed for 1 1/2 hours.
--- NOTE | 2019-03-11 19:28 | NUR ---
SHIFT SUMMARY PT A&Ox4, CALM AND COOPERATIVE WITH CARE. PT RESTING IN BED FOR MAJORITY OF SHIFT, UP IN CHAIR OR ON SIDE OF BED FOR MEALS. PT REPORTS HEADACHE THIS AM, DENIES NEEDS FOR PAIN MEDICATIONS. PT SOB WITH EXERTION, ON 4L O2 VIA NC, LS EXP WHE AND DIM BASES. PT RECEIVING IV STEROIDS. NEW ORDER FROM DR PARDO FOR LASIX 40MG PO ONCE THIS AFTERNOON. BLADDER TRAINING OVER NIGHT, MARCELLO REMOVED THIS AM, PT URINATING. PT WORKED WITH PT/OT DURING SHIFT. VSS, BP AND HR TRENDING DOWN. REPORT GIVEN TO ONCOMING RN.
--- NOTE | 2019-03-12 07:43 | NUR ---
SHIFT SUMMARY PATIENT PLEASENT AND COOPERTIVE THROUGHOUT THE NIGHT. PATIENT APPEARED TO SLEEP WELL LAST NIGHT. PATIENT HAD HER SLEEP STUDY THROUGHOUT THE NIGHT. PATIENT UP TO THE BSC WITH ONE ASSIST, FWW, AND GAITBELT. PATIENT STATES SHE FEELS SHE IS GETTING A LITTLE STRONGER. PATIENT CURRENTLY RESTING IN BED, VITAL SIGNS CHARTED. REPORT GIVEN TO ONCOMING RN.
[2019-03-12 07:44] LABS: PCO2 Arterial 68.6 mmHg (35-45); PO2 Arterial 59.3 mmHg (80-100); pH Blood Arterial 7.44 (7.35-7.45)
--- NOTE | 2019-03-12 08:20 | NUR ---
TELE REPORTING PT HAVING A 7BEAT RUN OF ANNY, ESPERANZA RN AT BEDSIDE, PT REMAINS ASSYMPTOMATIC. ASSUMED CARE OF PT AT APPROX 0700. PT RESTING IN BED. A&Ox4. CALM AND COOPERATIVE WITH CARE. PT STATES HER BREATHING IS BETTER, SOB WITH MOVEMENT, LS EXP WHE T/O DIM BASES, 3L O2 VIA NC AT REST, 4L O2 WITH MOVEMENT AND AMBULATION. PT STATES SHE FEELS "NOT WEAK" AND STATES SHE IS ABLE TO MOVE "MORE EASILY" THEN LAST NIGHT. BP ELEVATED, MEDICATED WITH SCHEDULED MEDICATIONS. OTHER VSS. NO OTHER ACUTE CHANGES NOTED, WILL CONTINUE TO MONITOR.
--- NOTE | 2019-03-12 17:43 | NUR ---
SHIFT SUMMARY PT A&Ox4. CALM AND COOPERATIVE WITH CARE. PT RESTING IN BED DURING SHIFT, ENCOURAGED AMBULATION TOLERATED. PT UP ON SIDE OF BED FOR MEALS. 1 PERSON ASSIST TO BSC. PT REPORTS BREATHING BETTER, NOT DIFFICULT TO BREATH, CONTIUES TO REPROTS SOB, PT ON 3L O2 VIA NC AT RESTING AND 4L O2 VIA NC FOR ACTIVITY. PT REPORTS RODRIGUES THIS AM, DENIES NEEDS FOR MEDICATIONS. PT DENIES N/V. PT RECEIVING IV STEROIDS, TRANSITIONING TO PO STEROIDS IN THE AM PER ORDERS. VSS, ELEVATED BP NOTED. NO OTHER ACUTE CHANGES NOTED DURING SHIFT. WILL CONTINUE TO MONITOR UNITL REPORT GIVEN TO ONCOMING RN.
--- NOTE | 2019-03-13 06:25 | NUR ---
SHIFT SUMMARY: PATIENT PLEASENT AND COOPERATIVE THROUGHOUT THE NIGHT. PATIENT APPEARED TO SLEEP WELL LAST NIGHT WITH NO COMPLAINTS OF PAIN OR DISCOMFORT. PATIENT CURRENTLY RESTING IN BED AND WATCHING TV. PATIENT DENIES ANY NEEDS AT THIS TIME. VITAL SIGNS CHARTED. WILL CONTINUE TO MONITOR PATIENT AND REPORT TO ONCOMING RN.
--- NOTE | 2019-03-13 13:00 | NUR ---
transfer: REport was given to SALLIE Vaughn and Pt tranfered to medical floor room [id number] via w/c. Pt tolerated transfer well and is stable at this time.
--- NOTE | 2019-03-13 15:53 | NUR ---
RECEIVED HANDOFF FROM ED/TRANSFERED PT TO SCU RECEIVED HANDOFF FROM ED NURSE WILLAM. PT ARRIVED ON FLOOR STIFF AND TOO WEAK TO TRANSFER SAFELY. PT BECAME COMBATIVE AND TRIED TO EXIT THE BED. PT TRANSFERED TO SCU. GAVE REPORT TO NURSE ISAAC. SHE HAD NO FURTHER QUESTIONS
--- NOTE | 2019-03-13 16:38 | NUR ---
SHIFT SUMMARY PT TRANSFERED FROM PCU TODAY TO MED FLOOR. 68 YR OLD FEMALE ADMITTED FOR PNEUMONIA/COPD EXACERBATION (RESP FAILURE). FULL CODE. STEROIDS ARE ELEVATING HER GLUCOSE LEVELS. REGULAR DIET. AC CHEMSTICKS. SIN HOSE ON. NEED DISCHARGE PLANNING TO ASSIST WITH GETTING A HOME BIPAP. RESPIRATORY BIJU INFORMED ME THAT SHE WILL FAX [facility]. PT IS WEAK SO IS A 1 PERSON STANDBY TO [facility]. NORMALLY ON 2 LPM @ HOME. NOW ON 3 LPM (4 LPM W/ACTIVITY). HX: COPD, HTN, CHF, HLD, CHRONIC THROMBOCYTOPENIA. HOPEFULLY WILL DC TOMORROW.
[2019-03-14 05:00] LABS: BASOPHILS ABSOLUTE AUTO 0.02 K/mm3 (0.00-0.23); BASOPHILS PERCENT AUTO 0 % (0-2); EOSINOPHILS ABSOLUTE AUTO 0.01 K/mm3 (0.00-0.68); EOSINOPHILS PERCENT AUTO 0 % (0-6); Hematocrit 41.4 % (33.0-51.0); Hemoglobin 12.9 g/dL (11.5-16.0); IMMATURE GRAN ABSOLUTE AUTO 0.11 K/mm3 (0.00-0.10); IMMATURE GRAN PERCENT AUTO 1 % (0-1); LYMPHOCYTES ABSOLUTE AUTO 2.18 K/mm3 (0.84-5.20); LYMPHOCYTES PERCENT AUTO 23 % (21-46); MONOCYTES ABSOLUTE AUTO 1.15 K/mm3 (0.16-1.47); MONOCYTES PERCENT AUTO 12 % (4-13); Mean Corpuscular HGB 30.4 pg (26.0-34.0); Mean Corpuscular HGB Conc 31.2 g/dL (31.5-36.5); Mean Corpuscular Volume 97 fL (80-100); NEUTROPHILS ABSOLUTE AUTO 5.98 K/mm3 (1.96-9.15); NEUTROPHILS PERCENT AUTO 63 % (41-73); RDW Coefficient Variation 12.9 % (11.7-14.2); Red Blood Cell Count 4.25 M/mm3 (3.80-5.20); White Blood Cell Count 9.45 K/mm3 (4.00-11.30)
[2019-03-14 05:01] LABS: Mean Platelet Volume 12.7 fL (9.1-12.4); Platelet Count 88 K/mm3 (150-400)
--- NOTE | 2019-03-14 07:46 | NUR ---
03/14/19 0610 SLEEPING WITHOUT DISTRESS. BIPAP ON LAST NIGHT AND TOLERATED IT WELL. VITALS STABLE.
[2019-03-14] MEDS ORDERED: LISI20 PO (13:52)
[2019-03-14] MEDS ORDERED: PRED10 PO (13:57)
[2019-03-14] MEDS ORDERED: ACET325 PO (13:59)
[2019-03-14] MEDS ORDERED: HYDRA50 PO (14:00)
--- NOTE | 2019-03-14 15:51 | NUR ---
PATIENT DISCHARGE THE PATIENT WWAS DISCHARGED HOME WITH HER SPOUSE, AFTER DISCHARGE INSTRUCTIONS WERE GIVEN TO THE PATIENT. THE PATIENT LEFT THE HOSPITAL WITHOUT CONCERN OR COMPLAINT.
== END 2019-03-14 15:40 | disposition home health service (06) | DRG 193 ==
LOC: ER 15:34 → ERHOLD 18:56 → ICUE 18:56 → PCU 03-10 07:59 → MEDS 03-13 13:00 → SURS 03-14 06:04 → MEDS 03-14 06:17 → ENPENDDIS 03-14 13:14 → MEDS 03-14 15:40
PROVIDERS: Emergency Medicine; Hospitalist; Internal Medicine; Internal Medicine Critical Care Medicine; Internal Medicine Pulmonary Disease; ADMIT Student in an Organized Health Care Education/Training Program
DX: J18.9 Pneumonia, unspecified organism (principal); J96.21 Acute and chronic respiratory failure with hypoxia; J96.22 Acute and chronic respiratory failure with hypercapnia; J44.1 Chronic obstructive pulmonary disease with (acute) exacerbation; I50.32 Chronic diastolic (congestive) heart failure; R65.10 Systemic inflammatory response syndrome (SIRS) of non-infectious origin without acute organ dysfunction; J44.0 Chronic obstructive pulmonary disease with (acute) lower respiratory infection; Z99.81 Dependence on supplemental oxygen; I11.0 Hypertensive heart disease with heart failure; R73.9 Hyperglycemia, unspecified; Z86.73 Personal history of transient ischemic attack (TIA), and cerebral infarction without residual deficits; Z87.891 Personal history of nicotine dependence; L30.4 Erythema intertrigo; L40.9 Psoriasis, unspecified; E11.65 Type 2 diabetes mellitus with hyperglycemia; J43.9 Emphysema, unspecified
CPT/HCPCS: 36415; 36600; 51702; 71045; 71260; 80048; 80053; 80069; 81001; 82803; 82947; 83605; 83735; 83880; 84100; 85025; 85379; 87040; 87486; 87581; 87633; 87798; 93005; 93010; 93306; 94640; 94644; 94660; 94762; 96365; 96367; 96375; 97110; 97116; 97161; 97166; 97530; 97535; 99285-25; A9270-GY; J0360; J0456; J0696; J1630; J1650; J2405; J2920; J2930; J7050; J7512; Q0163; Q9967

== ENCOUNTER 2021-09-24 08:56 | Emergency (ER) | payer MEDICARE, OTHER ==
[~2021-09-24] VITALS: Ht 172.7 cm; Wt 131.5 kg
[~2021-09-24 08:56] MED LIST changes: +ACET325 PO; +AZIT250 PO; +Calcium-Mag-Zi1 EACH PO; +Clobetasol Emol15 GM TOP; +FISH OIL 1,0001 EAC2 PO; +FLUT1DIS8 INH; +HYDRA50 PO; +LISI20 PO; +LO-DOSE ASPIRIN81 MG PO; +THERA1 EACH PO
[2021-09-24] MEDS ORDERED: ATOR10 PO (09:16)
[2021-09-24] MEDS ORDERED: FURO20 PO (09:16)
[2021-09-24] MEDS ORDERED: POTA10T PO (09:17)
[2021-09-24] MEDS ORDERED: MULVITA PO (09:19)
[2021-09-24] MEDS ORDERED: AZIT250 PO (09:20)
[2021-09-24] MEDS ORDERED: B COMPLEX FORM0.4 MG PO (09:20)
[2021-09-24] MEDS ORDERED: FISH OIL 1,2001 EAC7 PO (09:20)
[2021-09-24] MEDS ORDERED: OYSTER SHELL 51 EAC2 PO (09:21)
[2021-09-24 09:49] LABS: BASOPHILS ABSOLUTE AUTO 0.02 K/mm3 (0.00-0.23); BASOPHILS PERCENT AUTO 0 % (0-2); EOSINOPHILS ABSOLUTE AUTO 0.05 K/mm3 (0.00-0.68); EOSINOPHILS PERCENT AUTO 1 % (0-6); Hematocrit 38.6 % (33.0-51.0); Hemoglobin 12.5 g/dL (11.5-16.0); IMMATURE GRAN ABSOLUTE AUTO 0.03 K/mm3 (0.00-0.10); IMMATURE GRAN PERCENT AUTO 0 % (0-1); LYMPHOCYTES ABSOLUTE AUTO 1.38 K/mm3 (0.84-5.20); LYMPHOCYTES PERCENT AUTO 20 % (21-46); MONOCYTES ABSOLUTE AUTO 0.49 K/mm3 (0.16-1.47); MONOCYTES PERCENT AUTO 7 % (4-13); Mean Corpuscular HGB Conc 32.4 g/dL (31.5-36.5); Mean Corpuscular Volume 93 fL (80-100); Mean Platelet Volume 12.1 fL (9.1-12.4); NEUTROPHILS ABSOLUTE AUTO 4.87 K/mm3 (1.96-9.15); NEUTROPHILS PERCENT AUTO 71 % (41-73); Platelet Count 125 K/mm3 (150-400); RDW Coefficient Variation 13.5 % (11.7-14.2); RDW Standard Deviation 45.8 fL (35.1-46.3); Red Blood Cell Count 4.16 M/mm3 (3.80-5.20); White Blood Cell Count 6.84 K/mm3 (4.00-11.30)
[2021-09-24 09:58] LABS: Alanine Aminotransfer (ALT/SGP 16 U/L (12-78); Albumin, Blood 2.9 g/dL (3.4-5.0); Albumin/Globulin Ratio 0.8 (0.8-1.8); Alk Phos 88 U/L (50-136); Anion Gap 6 mmol/L (6-16); Aspartate Aminotrans (AST/SGOT 14 U/L (12-37); Bilirubin, Direct 0.1 mg/dL (0.0-0.3); Bilirubin, Indirect 0.4 mg/dL (0.1-0.7); Bilirubin, Total 0.5 mg/dL (0.1-1.0); Blood Urea Nitrogen 12 mg/dL (8-24); Bun/Creatinine Ratio 21.9 (12.0-20.0); CO2, Blood 35 mmol/L (21-32); Calcium, Blood 9.4 mg/dL (8.5-10.1); Chloride, Blood 95 mmol/L (98-108); Creatinine, Blood 0.55 mg/dL (0.40-1.00); Globulin, Blood 3.7 g/dL (2.2-4.0); Glomerular Filtration Rate >60 (60-); Glucose, Blood 127 mg/dL (70-99); Magnesium, Blood 1.8 mg/dL (1.6-2.4); Potassium, Blood 3.8 mmol/L (3.5-5.5); Sodium, Blood 136 mmol/L (136-145); Total Protein, Blood 6.6 g/dL (6.4-8.2)
[2021-09-24 10:51] LABS: Source, Urine Clean Catch
[2021-09-24 10:56] LABS: Appearance, Urine Clear (Clear); Bilirubin, Urine Neg (Neg); Blood, Urine 1+ (Neg); Color, Urine Yellow (P-Yellow); Glucose Qualitative, Urine Neg (Neg); Ketones, Urine Neg (Neg); Leukocyte Esterase, Urine Neg (Neg); Nitrite, Urine Neg (Neg); Protein, Urine Neg (Neg); Specific Gravity, Urine 1.005 (1.003-1.022); Urobilinogen, Urine NORM (Normal)
[2021-09-24 11:29] LABS: Red Blood Cells, Urine 0-2 /hpf (0-2); Squamous Epithelial Cells Rare /hpf (Few); White Blood Cells, Urine 0-2 /hpf (0-5)
[2021-09-24 11:30] LABS: Bacteria Mod /hpf
[2021-09-24] MEDS ORDERED: DICY20 PO (11:57)
[2021-09-24] MEDS ORDERED: MIRALAX17 GM PO (11:57)
== END 2021-09-24 12:15 | disposition home or self-care (01) ==
LOC: ER 08:56
PROVIDERS: Student in an Organized Health Care Education/Training Program
DX: R10.31 Right lower quadrant pain (principal); R11.0 Nausea; J44.9 Chronic obstructive pulmonary disease, unspecified; I11.0 Hypertensive heart disease with heart failure; I50.30 Unspecified diastolic (congestive) heart failure; E78.5 Hyperlipidemia, unspecified; Z79.899 Other long term (current) drug therapy
CPT/HCPCS: 74177; 80048; 80076; 81001; 83690; 83735; 85025; 87086; 93005; 93010; 96374-59; 96375; 99284-25; A9270; J1200; J1885; J2930; J7030; Q9967

== ENCOUNTER → 2021-09-28 | Outpatient (CLI) | payer MEDICARE, OTHER ==
[~2021-09-28] MED LIST changes: +ACYC800 PO; +ATOR10 PO; +B COMPLEX FORM0.4 MG PO; +DICY20 PO; +FISH OIL 1,2001 EAC7 PO; +FURO20 PO; +MIRALAX17 GM PO; +MULVITA PO; +OYSTER SHELL 51 EAC2 PO; +POTA10T PO
[2021-09-28 11:48] LABS: BASOPHILS ABSOLUTE AUTO 0.02 K/mm3 (0.00-0.23); BASOPHILS PERCENT AUTO 0 % (0-2); EOSINOPHILS ABSOLUTE AUTO 0.28 K/mm3 (0.00-0.68); EOSINOPHILS PERCENT AUTO 3 % (0-6); Hematocrit 43.3 % (33.0-51.0); Hemoglobin 13.8 g/dL (11.5-16.0); IMMATURE GRAN ABSOLUTE AUTO 0.07 K/mm3 (0.00-0.10); IMMATURE GRAN PERCENT AUTO 1 % (0-1); LYMPHOCYTES PERCENT AUTO 8 % (21-46); MONOCYTES ABSOLUTE AUTO 0.59 K/mm3 (0.16-1.47); MONOCYTES PERCENT AUTO 6 % (4-13); Mean Corpuscular HGB 30.6 pg (26.0-34.0); Mean Corpuscular HGB Conc 31.9 g/dL (31.5-36.5); Mean Corpuscular Volume 96 fL (80-100); Mean Platelet Volume 12.2 fL (9.1-12.4); NEUTROPHILS ABSOLUTE AUTO 7.83 K/mm3 (1.96-9.15); NEUTROPHILS PERCENT AUTO 82 % (41-73); Platelet Count 152 K/mm3 (150-400); RDW Coefficient Variation 14.6 % (11.7-14.2); RDW Standard Deviation 51.7 fL (35.1-46.3); Red Blood Cell Count 4.51 M/mm3 (3.80-5.20); White Blood Cell Count 9.59 K/mm3 (4.00-11.30)
[2021-09-28 12:11] LABS: Alanine Aminotransfer (ALT/SGP 16 U/L (12-78); Albumin, Blood 3.1 g/dL (3.4-5.0); Albumin/Globulin Ratio 1.1 (0.8-1.8); Alk Phos 92 U/L (40-126); Anion Gap 6 mmol/L (6-16); Aspartate Aminotrans (AST/SGOT 13 U/L (12-37); Bilirubin, Total 0.6 mg/dL (0.1-1.0); Blood Urea Nitrogen 22 mg/dL (8-24); Bun/Creatinine Ratio 26.8 (12.0-20.0); CO2, Blood 36 mmol/L (21-32); Calcium, Blood 8.9 mg/dL (8.5-10.1); Chloride, Blood 97 mmol/L (98-108); Creatinine, Blood 0.82 mg/dL (0.40-1.00); Globulin, Blood 2.8 g/dL (2.2-4.0); Glomerular Filtration Rate >60 (60-); Glucose, Blood 168 mg/dL (70-99); Sodium, Blood 139 mmol/L (136-145); Thyroid Stimulating Hormone 3.082 uIU/mL (0.360-4.800); Total Protein, Blood 5.9 g/dL (6.4-8.2)
== END | disposition home or self-care (01) ==
LOC: LAB SHORT 11:45
PROVIDERS: Physician Assistant Medical
DX: R53.83 Other fatigue (principal)
CPT/HCPCS: 80053; 84443; 85025

== ENCOUNTER 2022-06-09 14:27 | Inpatient (IN) | payer MEDICARE, OTHER ==
[~2022-06-09] VITALS: Ht 172.7 cm; Wt 175.0 kg
[2022-06-09 15:37] LABS: BASOPHILS ABSOLUTE AUTO 0.03 K/mm3 (0.00-0.23); BASOPHILS PERCENT AUTO 1 % (0-2); EOSINOPHILS ABSOLUTE AUTO 0.08 K/mm3 (0.00-0.68); EOSINOPHILS PERCENT AUTO 2 % (0-6); Hemoglobin 11.6 g/dL (11.5-16.0); IMMATURE GRAN ABSOLUTE AUTO 0.02 K/mm3 (0.00-0.10); IMMATURE GRAN PERCENT AUTO 0 % (0-1); LYMPHOCYTES ABSOLUTE AUTO 0.93 K/mm3 (0.84-5.20); LYMPHOCYTES PERCENT AUTO 20 % (21-46); MONOCYTES ABSOLUTE AUTO 0.36 K/mm3 (0.16-1.47); MONOCYTES PERCENT AUTO 8 % (4-13); Mean Corpuscular HGB 30.1 pg (26.0-34.0); Mean Corpuscular HGB Conc 32.2 g/dL (31.5-36.5); Mean Corpuscular Volume 93 fL (80-100); Mean Platelet Volume 11.9 fL (9.1-12.4); NEUTROPHILS ABSOLUTE AUTO 3.13 K/mm3 (1.96-9.15); NEUTROPHILS PERCENT AUTO 69 % (41-73); Platelet Count 118 K/mm3 (150-400); RDW Coefficient Variation 14.4 % (11.7-14.2); RDW Standard Deviation 49.2 fL (35.1-46.3); Red Blood Cell Count 3.86 M/mm3 (3.80-5.20); White Blood Cell Count 4.55 K/mm3 (4.00-11.30)
[2022-06-09 15:55] LABS: Albumin, Blood 3.4 g/dL (3.4-5.0); Albumin/Globulin Ratio 1.1 (0.8-1.8); Bilirubin, Total 0.4 mg/dL (0.1-1.0); Bun/Creatinine Ratio 19.2 (12.0-20.0); Calcium, Blood 9.4 mg/dL (8.5-10.1); Creatinine, Blood 0.73 mg/dL (0.40-1.00); Potassium, Blood 3.9 mmol/L (3.5-5.5); Total Protein, Blood 6.4 g/dL (6.4-8.2)
[2022-06-09 17:19] LABS: Base Excess Venous -2.8 mmol/L; Bicarbonate Venous 22.3 mmol/L (24.0-30.0); pH Blood Venous 7.38 (7.34-7.37)
--- NOTE | 2022-06-10 06:07 | NUR ---
SHIFT SUMMARY PT ARRIVED IN THE ER WITH WORSENING SOB. SHE IS ON 2L OF O2 AT BASELINE BUT DESATURATED DOWN TO 60% DURING AMBULATION IN THE ER. PT IS ALLERGIC TO IODINE AND HAD A CT WITH CONTRAST IN THE ER, THEY GAVE HER 50 MG IV BENEDRYL WHICH CONTROLLED SYMPTOMS. THIS MORNING AROUND 0530 SHE WOKE UP WITH ITCHING, REDNESS AND SOME HIVES ON HER CHEST. I CALLED THE HOSPITALIST AND HE ORDERED 50 MG PO BENEDRYL WHICH WAS ADMINISTERED AT 0600. PT DID NOT DISPLAY ANY DYSPNEA AT REST BUT DID HAVE DYSPNEA ON EXERTION WHEN SHE WAS UP TO THE BEDSIDE COMMODE WITH 1 PERSON ASSIST AND FWW. ADMINISTERED IV SOLU-MEDROL ORDERED. PT AOX4, PLEASANT AND COOPERATIVE WITH CARE. NO ACUTE EVENTS.
[2022-06-10 06:09] LABS: Bun/Creatinine Ratio 19.6 (12.0-20.0); Calcium, Blood 8.9 mg/dL (8.5-10.1); Creatinine, Blood 0.66 mg/dL (0.40-1.00); Potassium, Blood 4.3 mmol/L (3.5-5.5)
--- NOTE | 2022-06-10 18:32 | NUR ---
SHIFT SUMMARY: PT A/O X 4 STANDBY ASSIST TO BSC, PLEASANT AND COOPERATIVE WITH CARE. PT REPORTED AT END OF SHIFT BREATHING FEELS MUCH EASIER ABD BETTER. SHE IS SITTING UP AT BEDSIDE FOR MEALS. SHE HAS LESS SOB WITH EXERTION TO BSC. CONTINUES TO BE ON 2 LPM VIA NC. PT SPOUSE BROUGHT HER HOME BIPAP TO BE SET UP TONIGHT. ORDER RECEIVED FOR CONTINUED COMPLAINTS OF SKIN ITCHING. NYSTATIN ORDER RECEIVED FOR YEAST RASH UNDER BREASTS AND CREASE OF BOTTOM.
[2022-06-11 05:27] LABS: BASOPHILS ABSOLUTE AUTO 0.03 K/mm3 (0.00-0.23); BASOPHILS PERCENT AUTO 0 % (0-2); EOSINOPHILS PERCENT AUTO 0 % (0-6); Hematocrit 34.9 % (33.0-51.0); Hemoglobin 11.3 g/dL (11.5-16.0); IMMATURE GRAN ABSOLUTE AUTO 0.09 K/mm3 (0.00-0.10); IMMATURE GRAN PERCENT AUTO 1 % (0-1); LYMPHOCYTES PERCENT AUTO 4 % (21-46); MONOCYTES ABSOLUTE AUTO 0.15 K/mm3 (0.16-1.47); MONOCYTES PERCENT AUTO 1 % (4-13); Mean Corpuscular HGB 29.7 pg (26.0-34.0); Mean Corpuscular HGB Conc 32.4 g/dL (31.5-36.5); Mean Corpuscular Volume 92 fL (80-100); NEUTROPHILS ABSOLUTE AUTO 15.28 K/mm3 (1.96-9.15); NEUTROPHILS PERCENT AUTO 95 % (41-73); Platelet Count 125 K/mm3 (150-400); RDW Coefficient Variation 14.5 % (11.7-14.2); RDW Standard Deviation 49.2 fL (35.1-46.3); White Blood Cell Count 16.15 K/mm3 (4.00-11.30)
--- NOTE | 2022-06-11 05:30 | NUR ---
SHIFT SUMMARY PT STATES SOB HAS IMPROVED WHEN SHE IS UP TO BSC. HOME CPAP AT THE BEDSIDE AND IN USE TONIGHT. REDNESS AND SKIN BREAKDOWN WAS NOTED BELOW BREASTS AND AROUND BUTTOCKS, REDDENED AREAS WERE CLEANED AND NYSTATIN CREAM APPLIED. PRN ATARAX WAS GIVEN FOR ITCHING. AN ECHO IS PLANNED FOR TODAY, AND PT COULD POSSIBLY D/C AFTER RESULTS OF ECHO. PT'S BLOOD SUGAR WAS 238 THIS MORNING, NO ORDERS FOR INSULIN. NO ACTUE EVENTS, VSS, PT PLEASANT AND COOPERATIVE WITH CARE.
[2022-06-11 05:53] LABS: Bun/Creatinine Ratio 33.4 (12.0-20.0); Calcium, Blood 8.8 mg/dL (8.5-10.1); Creatinine, Blood 0.75 mg/dL (0.40-1.00); Potassium, Blood 4.4 mmol/L (3.5-5.5)
[2022-06-11] MEDS ORDERED: EUTHYROX50 MCG PO (16:35)
[2022-06-11] MEDS ORDERED: METF500 (16:36)
[2022-06-11] MEDS ORDERED: Prednisone10 MG PO (16:40)
[2022-06-11] MEDS ORDERED: NYSTATIN15 GM TOP (16:41)
--- NOTE | 2022-06-11 18:44 | NUR ---
dISCHARGE 1845 PATIENT WAS DISCHARGED TO HOME WITH TRANSPORTING. IV WAS REMOVED, TELE DISCONTINUED. DISCHARGE INSTRUCTIONS WERE REVIEWED- PATIENT EDUCATION-FOLLOW UP APPOINTMENTS AND MEDICATIONS. PATIENT WAS WHEELED DOWN TO THE DOORS WITH [facility] STAFF.
== END 2022-06-11 18:46 | disposition home or self-care (01) | DRG 189 ==
LOC: ER 14:27 → MEDS 18:04
PROVIDERS: Emergency Medicine; Family Medicine; ADMIT Internal Medicine
DX: J96.21 Acute and chronic respiratory failure with hypoxia (principal); J44.9 Chronic obstructive pulmonary disease, unspecified; I10 Essential (primary) hypertension; Z99.81 Dependence on supplemental oxygen; M06.9 Rheumatoid arthritis, unspecified; E66.9 Obesity, unspecified; E11.9 Type 2 diabetes mellitus without complications; Z91.040 Latex allergy status; Z88.5 Allergy status to narcotic agent; D69.6 Thrombocytopenia, unspecified; E78.5 Hyperlipidemia, unspecified; Z98.890 Other specified postprocedural states; Z87.891 Personal history of nicotine dependence; Z79.899 Other long term (current) drug therapy
CPT/HCPCS: 36415; 71045; 71260; 80048; 80053; 82803; 82947; 84484; 85025; 93005; 93010; 93306; 94640; 94660; 94664; 94760; 94762; 96361; 96374-59; 96375-59; 99285-25; A9270; J1200; J1650; J2405; J2930; J7030; Q9967